=== PATIENT | male | born 1960 | race American Indian/Alaskan Native ===

== ENCOUNTER 2017-04-04 13:15 | Outpatient (CLI) | payer OTHER | END 2017-04-04 15:00 | disposition home or self-care (01) | LOC: SONOGRAMA 13:15 | DX: N20.0 Calculus of kidney (principal) ==

== ENCOUNTER 2017-10-07 13:53 | Outpatient (CLI) | payer OTHER | END 2017-10-07 17:00 | disposition home or self-care (01) | LOC: SONOGRAMA 13:53 | DX: N23 Unspecified renal colic (principal) ==

== ENCOUNTER 2017-10-10 12:39 | Outpatient (CLI) | payer OTHER | END 2017-10-10 17:00 | disposition home or self-care (01) | LOC: SONOGRAMA 12:39 | DX: N20.0 Calculus of kidney (principal) ==

== ENCOUNTER 2017-10-26 14:59 | Outpatient (CLI) | payer OTHER ==
[2017-10-26] MEDS ORDERED: ASPIR 8181 MG (18:59)
[2017-10-26] MEDS ORDERED: LIPITOR20 MG (18:59)
[2017-10-26] MEDS ORDERED: METFORMIN HCL500 MG (18:59)
[2017-10-26] MEDS ORDERED: TOPROL XL50 M1 (18:59)
[2017-10-26] MEDS ORDERED: COZAAR100 MG (18:59)
== END 2017-10-26 15:23 | disposition home or self-care (01) ==
LOC: SONOGRAMA 14:59
DX: N20.0 Calculus of kidney (principal)

== ENCOUNTER 2017-10-26 18:46 | Day surgery (SDC) | payer OTHER ==
[~2017-10-26] VITALS: Ht 170.2 cm; Wt 74.8 kg
[2017-10-26] MEDS ORDERED: METFORMIN HCL500 MG (18:59)
[2017-10-26] MEDS ORDERED: ASPIR 8181 MG (18:59)
[2017-10-26] MEDS ORDERED: COZAAR100 MG (18:59)
[2017-10-26] MEDS ORDERED: LIPITOR20 MG (18:59)
[2017-10-26] MEDS ORDERED: TOPROL XL50 M1 (18:59)
== END 2017-10-26 22:35 | disposition home or self-care (01) ==
LOC: ER 18:46 → CIR.AMB 18:52
DX: N20.1 Calculus of ureter (principal)

== ENCOUNTER 2019-12-14 12:00 | Outpatient (CLI) | payer OTHER ==
[~2019-12-14 12:00] MED LIST: ASPIR 8181 MG; COZAAR100 MG; LIPITOR20 MG; METFORMIN HCL500 MG; TOPROL XL50 M1
== END 2019-12-14 16:12 | disposition home or self-care (01) ==
LOC: PPH VACUNA 12:00
DX: Z23 Encounter for immunization (principal)

== ENCOUNTER → 2020-08-06 | Day surgery (SDC) | payer OTHER ==
[~2020-08-06] VITALS: Ht 170.2 cm; Wt 77.1 kg
[~2020-08-06] MED LIST changes: +AMLODIPINE-OLM1 EACH PO; +ATORVASTATIN CA10 MG PO; +METFORMIN HCL1000 M1 PO; +TOPROL XL200 MG PO
== END | disposition home or self-care (01) ==
LOC: ER 11:38 → CIR.AMB 12:09
PROVIDERS: ATTEND Urology
DX: N20.1 Calculus of ureter (principal); Z20.822 Contact with and (suspected) exposure to COVID-19

== ENCOUNTER → 2020-08-06 | Outpatient (CLI) | payer OTHER | END | disposition home or self-care (01) | LOC: TOM 10:31 | PROVIDERS: ATTEND Radiology Diagnostic Radiology | DX: R10.31 Right lower quadrant pain (principal) ==

== ENCOUNTER 2020-12-24 08:00 | Outpatient (CLI) | payer OTHER | END 2020-12-24 08:30 | disposition home or self-care (01) | LOC: PPH VACUNA 08:00 | PROVIDERS: ATTEND Emergency Medicine Pediatric Emergency Medicine | DX: Z23 Encounter for immunization (principal) ==

== ENCOUNTER 2021-02-11 17:22 | Outpatient (CLI) | payer OTHER | END 2021-02-11 17:30 | disposition home or self-care (01) | LOC: RAD 17:22 | PROVIDERS: ATTEND Physical Medicine & Rehabilitation | DX: M65.821 Other synovitis and tenosynovitis, right upper arm (principal); M75.81 Other shoulder lesions, right shoulder ==

== ENCOUNTER 2021-07-20 08:00 | Outpatient (CLI) | payer OTHER | END 2021-07-20 08:30 | disposition home or self-care (01) | LOC: PPH VACUNA 08:00 | PROVIDERS: ATTEND Emergency Medicine Pediatric Emergency Medicine | DX: Z23 Encounter for immunization (principal) ==

== ENCOUNTER 2021-12-03 08:00 | Outpatient (CLI) | payer OTHER | END 2021-12-03 08:05 | disposition home or self-care (01) | LOC: PPH VACUNA 08:00 | PROVIDERS: ATTEND Emergency Medicine Pediatric Emergency Medicine | DX: Z23 Encounter for immunization (principal) ==

== ENCOUNTER → 2021-12-05 | Emergency (ER) | payer OTHER ==
[~2021-12-05] VITALS: Ht 180.3 cm; Wt 81.6 kg
== END | disposition left against medical advice (07) ==
LOC: ER 04:28
DX: R07.89 Other chest pain (principal); R00.2 Palpitations